=== PATIENT | female | born 1985 | race Caucasian/White ===

== ENCOUNTER 2018-03-17 09:30 | Emergency (ER) | payer BC, OTHER ==
[2018-03-17 10:02] VITALS: TEMP 98.3; O2SAT 97
--- NOTE | 2018-03-17 10:19 | RAD ---
Study: Three views of the Left Ankle. Indication: pain 24 hrs no trauma Comparison: None. Impression: No acute fracture or malalignment. Talar dome intact. Soft tissue swelling about the ankle. Tiny tibiotalar joint effusion and mild joint space narrowing. MRI can better evaluate for internal derangement as clinically indicated. Electronically signed by: Dionisio Davey MD 03/17/2018 10:18 AM CDT
--- NOTE | 2018-03-17 10:43 | ED.PDOC ---
History of Present Illness - General Chief Complaint: Lower Extremity Injury Stated Complaint: left ankle pain Time Seen by Provider: 03/17/18 09:55 Source: patient Exam Limitations: no limitations - History of Present Illness Initial Comments: he patient is a 33-year-old female presenting to the emergency room secondary to left ankle pain. She reports that it started last night when she rolled over in bed and was pretty significant. It was worse with any movement. It quit all of a sudden last night and then resume this morning after she had been ambulatory for a couple of minutes. She reports the pain is primarily anterolateral. She reports that she has sprained the ankle on several occasions in the past. She is neurovascularly intact. There is no evidence of overt trauma. She does have mild swelling around the ankle. There is no bruising. No crepitus. There is mild increased laxity in the tibiotalar joint. This is consistent with multiple previous sprains. Timing/Duration: 24 hours Severity: moderate Improving Factors: immobilization Worsening Factors: movement Associated Symptoms: denies symptoms Allergies/Adverse Reactions: Allergies NO KNOWN ALLERGY Allergy (Verified 05/26/16 22:11) Home Medications: Ambulatory Orders Spironolactone [Aldactone] 300 mg PO TID 05/25/15 Liraglutide [Victoza] 18 mg SC QAM 04/23/16 Albuterol Inhaler [Ventolin Hfa Inhaler] 108 mcg IN PRN PRN 10/21/16 Metformin HCl 1,000 mg PO BID 10/21/16 medroxyPROGESTERone TAB [Provera] 5 mg PO DAILY 03/17/18 Review of Systems - Review of Systems Constitutional: States: no symptoms reported EENTM: States: no symptoms reported Respiratory: States: no symptoms reported Cardiology: States: no symptoms reported Gastrointestinal/Abdominal: States: no symptoms reported Genitourinary: States: no symptoms reported Musculoskeletal: States: see HPI Skin: States: no symptoms reported Neurological: States: no symptoms reported Endocrine: States: no symptoms reported All other Systems: No Change from Baseline Past Medical History (General) - Patient Medical History Hx Seizures: No Hx Stroke: No Hx Dementia: No Hx Asthma: Yes Hx of COPD: No Hx Cardiac Disorders: No Hx Congestive Heart Failure: No Hx Pacemaker: No Hx Hypertension: No Hx Thyroid Disease: No Hx Diabetes: Yes Hx Gastroesophageal Reflux: No Hx Cancer: Yes - cervical cancer Hx of HIV: No Hx MRSA: No MRSA Source:: Wound Surgical History: other - Vaccination History Hx Tetanus, Diphtheria Vaccination: No Hx Influenza Vaccination: No Hx Pneumococcal Vaccination: No - Social History Hx Tobacco Use: Yes Hx Chewing Tobacco Use: No Hx Alcohol Use: No Hx Substance Use: No Hx Substance Use Treatment: No Hx Depression: No Hx Physical Abuse: No Hx Emotional Abuse: No Hx Suspected Abuse: No - Female History Patient : No Family Medical History - Family History Father Family History: Unknown Living Status: Hx Family Cancer: Yes - brain Mother Living Status: Hx Cardiac Disease: Yes Physical Exam - Physical Exam General Appearance: Alert, Comfortable, No apparent distress Eye Exam: bilateral normal Ears, Nose, Throat: hearing grossly normal Neck: full range of motion Respiratory: no respiratory distress, no accessory muscle use Cardiovascular/Chest: normal peripheral pulses, no edema Peripheral Pulses: dorsalis pedis,right: 2+, dorsalis pedis,left: 2+, posterior tibialis,right: 2+, posterior tibialis,left: 2+ Rectal Exam: deferred Extremity: normal range of motion, no pedal edema, no calf tenderness, normal capillary refill, other - see history of present illness Neurologic: chief librarian circulation department II-XII nml as tested, alert, normal mood/affect, oriented x 3 Skin Exam: normal color Comments: Vital Signs - 24 hr 03/17/18 09:46 Temperature 98.3 F Pulse Rate [ 87 left brachial] Respiratory 16 Rate O2 Sat by Pulse 97 Oximetry Progress - Progress Progress: 03/17/18 10:43 the patient's 33-year-old female presenting with what appears to be a mild recurrent left ankle sprain. She does have some mild laxity of the ankle joint likely from previous injuries as well. The patient be placed in a walking boot for the next 2-3 weeks. She does need to follow-up with orthopedics to see if she is going to require some additional ankle stabilization in the future to prevent further sprains. [id number] cold oral anti-inflammatories can be used for pain control. X-ray shows no evidence of fracture or dislocation though it does show an effusion of the tibiotalar joint as expected. ER warnings were given. Departure - Departure Clinical Impression: Sprain of left ankle or foot Disposition: Discharge to Home or Self Care Condition: Fair Departure Forms: ED Discharge - Pt. Copy, Patient Portal Self Enrollment Diet: diabetic diet Activity: no exercise Referrals: PRAFUL SANTANA [employer] [Primary Care Provider] - 1-2 Weeks Home Medications: Ambulatory Orders Spironolactone [Aldactone] 300 mg PO TID 05/25/15 Liraglutide [Victoza] 18 mg SC QAM 04/23/16 Albuterol Inhaler [Ventolin Hfa Inhaler] 108 mcg IN PRN PRN 10/21/16 Metformin HCl 1,000 mg PO BID 10/21/16 medroxyPROGESTERone TAB [Provera] 5 mg PO DAILY 03/17/18 Additional Instructions: the patient's 33-year-old female presenting with what appears to be a mild recurrent left ankle sprain. She does have some mild laxity of the ankle joint likely from previous injuries as well. The patient be placed in a walking boot for the next 2-3 weeks. She does need to follow-up with orthopedics to see if she is going to require some additional ankle stabilization in the future to prevent further sprains. [id number] cold oral anti-inflammatories can be used for pain control. X-ray shows no evidence of fracture or dislocation though it does show an effusion of the tibiotalar joint as expected. ER warnings were given.
[2018-03-17 11:14] VITALS: BP 114/80
== END 2018-03-17 11:16 | disposition home or self-care (01) ==
LOC: ER 09:30
DX: S93.402A Sprain of unspecified ligament of left ankle, initial encounter (principal); J45.909 Unspecified asthma, uncomplicated; E11.9 Type 2 diabetes mellitus without complications; Z85.41 Personal history of malignant neoplasm of cervix uteri; Z87.891 Personal history of nicotine dependence; X58.XXXA Exposure to other specified factors, initial encounter; Y92.009 Unspecified place in unspecified non-institutional (private) residence as the place of occurrence of the external cause

== ENCOUNTER 2019-07-02 | Emergency (ER) | payer OTHER | END 2019-07-02 07:33 | disposition home or self-care (01) ==